=== PATIENT | male | born 1980 | race Caucasian/White ===

== ENCOUNTER 2022-11-09 06:36 | Day surgery (SDC) | payer BC ==
[2022-11-07 10:23] VITALS: BMI 30.4
[2022-11-09] MEDS ORDERED: LACTATED RINGERS 1,000 ML IV SCH (07:09)
[2022-11-09 07:24] VITALS: TEMP 97.4
[2022-11-09] MEDS ORDERED: LIDOCAINE 1% (10MG/ML) FOR IV START INTRADERMA ONE (07:24)
[2022-11-09] MEDS ORDERED: MIDAZOLAM 2 MG/2 ML VIAL ONE (08:00)
[2022-11-09] MEDS ORDERED: LIDOCAINE 2% INJ 20 MG/ML (2 ML VIAL) ONE (08:00)
[2022-11-09] MEDS ORDERED: PROPOFOL 10 MG/ML 20 ML VIAL IV ONE (08:00)
[2022-11-09] MEDS ORDERED: fentaNYL (PF) 50 MCG/ML 2 ML AMP ONE (08:00)
--- NOTE | 2022-11-09 08:51 | P.PCN ---
Date of Procedure: 11/09/22 Procedure(s) Performed: Brief history: Patient is a pleasant 41-year-old white male scheduled for an elective upper endoscopy as well as colonoscopy as a part of evaluation of epigastric pain for the last 3 months duration. He also has been complaining of intermittent rectal bleeding. Procedure performed: Esophagogastroduodenoscopy with biopsy Colonoscopy with snare polypectomy and tattooing with Rashida ink Preoperative diagnosis: Epigastric pain Intermittent rectal bleeding Anesthesia: MAC Procedure: After informed consent was obtained from the patient was brought into the endoscopy unit and IV sedation was administered by anesthesia under continuous monitoring. Initially upper endoscopy was done. The Olympus GF 160 video endoscope was inserted inserted into the mouth and esophagus intubated without any difficulty and was gradually advanced into the stomach and duodenum and carefully examined. The bulb and second part of the duodenum appeared normal. The scope was then withdrawn into the stomach adequately insufflated with air and upon careful examination the antrum and body, cardia and fundus appeared normal. The scope was then withdrawn into the esophagus. The GE junction was located at 40 cm to the incisors. It appeared regular with no erythema erosions or ulcerations. Rest of the esophagus appeared normal. Patient tolerated the procedure well. At this time the patient continued to remain sedation. Initial digital rectal examination was normal. Olympus CF 160 video colonoscope was then inserted into the rectum and gradually advanced to the cecum without any difficulty. Careful examination was performed as the scope was gradually being withdrawn. The prep was fair. The cecum, we normal. In the setting colon there was a 1 cm polyp removed by snare polypectomy. Rest of the ascending colon, transverse colon, appeared normal. In the distal descending colon there was a circumferential ulcerated mass extending from 40-35 cm from the anal verge and multiple biopsies were done from this area followed by tattooing with Rashida ink at the distal margin of the mass. Rest of the descending colon, sigmoid colon appeared normal. In the proximal rectum at 50 cm from the anal was there were 2 polyps measuring 2 cm in 4 cm in size both of which were removed by snare polypectomy. The polypectomy was accomplished. In the distal rectum there was a small polyps measuring 5-6 mm in size removed by snare polypectomy. Retroflexion was performed in the rectum and no lesions were noted. Patient tolerated the procedure well. Impression: 1. Upper endoscopy revealed minimal antral gastritis and LA grade a reflux esophagitis 2. Colonoscopy revealed: a) Circumferential ulcerated mass in the distal descending colon extending from 48-25 cm from the anal verge status post multiple biopsies followed by tattooing with Rashida ink. b) 1 mm ascending colon polyp status post polypectomy c) 3 cm and 4 cm proximal rectal polyps at 50 cm from the anal verge status post polypectomy d) 5 polyps in the distal rectum measuring between 5 mm to 6 mm in size status post polypectomy Recommendations: Findings of this examination were discussed with the patient as well as his family. He was advised to follow with the biopsy results. He was advised to follow with the biopsy results. He will be scheduled for CT of abdomen and pelvis and he'll be seen in office next week.
[2022-11-09 09:10] VITALS: BP 122/49; PULSE 66; RESP 16
== END 2022-11-09 09:54 | disposition home or self-care (01) ==
LOC: ORWHC2ENDO 06:36
PROVIDERS: ATTEND Internal Medicine Gastroenterology
DX: K29.50 Unspecified chronic gastritis without bleeding (principal); D12.2 Benign neoplasm of ascending colon; D12.8 Benign neoplasm of rectum; I10 Essential (primary) hypertension; E78.5 Hyperlipidemia, unspecified; J45.909 Unspecified asthma, uncomplicated; F12.90 Cannabis use, unspecified, uncomplicated; Z79.899 Other long term (current) drug therapy
CPT/HCPCS: 88305; 45380; 45385; 43239; 45381; J2250; J3010; J2704; J2001

== ENCOUNTER → 2022-11-10 | Outpatient (CLI) | payer BC ==
--- NOTE | 2022-11-10 17:22 | CT ---
EXAMINATION TYPE: CT abdomen pelvis w con DATE OF EXAM: 11/10/2022 COMPARISON: None. HISTORY: Malignant tumor descending colon CT DLP: 1060.4 mGycm, Automated Exposure Control for Dose Reduction was Utilized. CONTRAST: CT scan of the abdomen and pelvis is performed with oral and with IV Contrast, patient injected with 100ML mL of Isovue 300. FINDINGS: LUNG BASES: No significant abnormality is appreciated. LIVER/GB: No significant abnormality is appreciated. PANCREAS: No significant abnormality is seen. SPLEEN: No significant abnormality is seen. ADRENALS: No significant abnormality is seen. KIDNEYS: Partially exophytic subcentimeter lesion upper pole right kidney axial image 25 too small to further characterize presumed benign. Symmetric cortical medullary uptake and excretion without hydr onephrosis. BOWEL: Oral contrast does not reach level of terminal ileum making evaluation of distal bowel slightl y suboptimal. No suspicious small or large bowel dilatation. There is moderate to severe abnormal wal l thickening in the left colon with eccentric 2.5 cm mass suspected coronal image 53 correlates with patient history of neoplasm. PROSTATE/SEMINAL VESICLES: No gross abnormality seen. LYMPH NODES: Adjacent to the left colon there are prominent subcentimeter lymph nodes. Largest measur es 8 mm in size axial image 42. No definitive greater than 1 cm abdominal or pelvic nodes. Prominent but subcentimeter lymph nodes in the mesentery and retroperitoneum are seen. OSSEOUS STRUCTURES: No significant abnormality is seen. OTHER: No significant additional abnormality is seen. IMPRESSION: Left-sided colonic neoplasm with adjacent suspicious adenopathy. No convincing evidence f or metastatic disease on this exam.
== END | disposition home or self-care (01) ==
LOC: RADCTMAIN 14:32
PROVIDERS: ATTEND Internal Medicine Gastroenterology
DX: C18.6 Malignant neoplasm of descending colon (principal)
CPT/HCPCS: 74177; Q9967

== ENCOUNTER → 2022-11-17 | Outpatient (CLI) | payer BC ==
--- NOTE | 2022-11-17 14:30 | CT ---
EXAMINATION TYPE: CT chest w con DATE OF EXAM: 11/17/2022 COMPARISON: None HISTORY: Recent diagnosis of colon CA CT DLP: 406.2 mGycm Automated exposure control for dose reduction was used. TECHNIQUE: CT scan of the chest is performed with IV Contrast, patient injected with 70 mL of Isovue 300. MIP I mages are created on CT scanner and reviewed. 3D reconstructed images are created on an independent w orkstation and reviewed. FINDINGS: LUNGS: The lungs are grossly clear, there is no concerning parenchymal mass or nodule identified. T here is no pleural effusion or pneumothorax seen. The tracheobronchial tree is patent. Minimal faint groundglass attenuation left lower lobe superior segment region most likely related to atelectasis MEDIASTINUM: There are no greater than 1 cm hilar or mediastinal lymph nodes. No pericardial effusi on is seen. Heart is mildly enlarged OTHER: Small hiatal hernia. Trace gynecomastia. IMPRESSION: 1. No diagnostic evidence of metastases. 2. Minimal groundglass attenuation superior segment left lower lobe. Atelectasis favored over mild pn eumonitis.
== END | disposition home or self-care (01) ==
LOC: RADCTMAIN 13:32
PROVIDERS: ATTEND Internal Medicine
DX: C18.9 Malignant neoplasm of colon, unspecified (principal); J98.11 Atelectasis
CPT/HCPCS: 71260; Q9967

== ENCOUNTER → 2022-12-05 | Outpatient (CLI) | payer BC ==
--- NOTE | 2022-12-06 19:06 | MR ---
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 Orthogonal high resolution T2 weighted imaging was obtained thro ugh the rectal mass with additional sequences including T1 weighted images and diffusion weighted scott ging. IV CONTRAST: 9 Gadavist FINDINGS: Visualized sigmoid colon does not definitively demonstrate a mass. Given report of polypectomy the le brent in question couldn't been entirely removed. No MR evidence for wall thickening or mass. Few smal l prominent lymph nodes are seen in the presacral space measuring up to 5 mm example series 1601 imag e 19. No evidence free fluid. No colonic diverticula. The urinary bladder and osseous structures are unrema rkable. The prostate gland is not enlarged. IMPRESSION: 1. No definitive evidence for rectal tumor, given endoscopy report of polypectomy this could represe nt complete removal. Findings suggest a T1/T2 tumor. 2. Single lymph node seen in the presacral the left measuring up to 5 mm. This finding is nonspecifi c given prior polypectomy without evidence for an rectal mass.
== END | disposition home or self-care (01) ==
LOC: RADMRIMAIN 11:45
PROVIDERS: ATTEND Internal Medicine
DX: C18.9 Malignant neoplasm of colon, unspecified (principal)
CPT/HCPCS: 72197; A9585

== ENCOUNTER 2025-02-07 11:15 | Day surgery (SDC) | payer BC ==
[2025-02-07 12:18] VITALS: TEMP 97.6
[2025-02-07] MEDS: LACTATED RINGERS 1,000 ML IV SCH (12:25)
[2025-02-07] MEDS: IV FLUID CONTINUATION 1,000 ML IV ONE ×2 (12:26→13:03)
[2025-02-07] MEDS ORDERED: PROPOFOL 10 MG/ML 20 ML VIAL IV ONE (13:07)
--- NOTE | 2025-02-07 13:25 | P.PCN ---
Date of Procedure: 02/07/25 Procedure(s) Performed: BRIEF HISTORY: Patient is a 44-year-old pleasant white male scheduled for an elective colonoscopy as a part of screening for personal history of colon cancer diagnosed in October 2022. He was noted to have ulcerated mass in the descending colon for which he underwent left hemicolectomy and did not require any chemotherapy. PROCEDURE PERFORMED: Colonoscopy with biopsy and snare polypectomy. PREOPERATIVE DIAGNOSIS: Personal history of colon cancer diagnosed in October 2022 status post left hemicolectomy. IV sedation per Anesthesia. PROCEDURE: After informed consent was obtained, the patient, was brought into the endoscopy unit. IV sedation was administered by Anesthesia under continuous monitoring. Digital rectal examination was normal. Initially the Olympus CF-160 flexible video colonoscope was then inserted in the rectum, gradually advanced into the cecum without any difficulty. Careful examination was performed as the scope was gradually being withdrawn. Ileocecal valve and the appendiceal orifice were visualized and appeared normal. Prep was excellent. Mucosa of the cecum, ascending colon, transverse colon, descending colon, appeared normal. Anastomosis was located at 40 cm from the anal verge that appeared normal. In the sigmoid colon there was a 3 mm and 4 mm polyp that was removed by cold biopsy. In the rectum there was a 7 mm polyp that was removed by cold snare polypectomy. . Retroflexion was performed in the rectum and no lesions were seen. The patient tolerated the procedure well. IMPRESSION: 3 mm and 4 mm sigmoid colon polyp status post cold biopsy 7 mm proximal rectal polyp status post cold snare polypectomy RECOMMENDATIONS: Findings of this examination were discussed with the patient as well as his family. He was advised to follow up with the biopsy results. Recommended repeat colonoscopy in 1 years.
[2025-02-07 13:47] VITALS: BP 137/80; PULSE 63; RESP 16
== END 2025-02-07 14:09 | disposition home or self-care (01) ==
LOC: ORWHC2ENDO 11:15
PROVIDERS: ATTEND Internal Medicine Gastroenterology
DX: Z12.11 Encounter for screening for malignant neoplasm of colon (principal); D12.8 Benign neoplasm of rectum; D12.5 Benign neoplasm of sigmoid colon; I10 Essential (primary) hypertension; E78.5 Hyperlipidemia, unspecified; J45.909 Unspecified asthma, uncomplicated; Z79.899 Other long term (current) drug therapy; Z85.038 Personal history of other malignant neoplasm of large intestine; Z90.49 Acquired absence of other specified parts of digestive tract; Z88.8 Allergy status to other drugs, medicaments and biological substances
CPT/HCPCS: 88305; 45380; 45385; J2704